=== PATIENT | male | born 1960 | race Caucasian/White ===

== ENCOUNTER 2019-07-14 09:34 | Emergency (ER) | payer BC ==
[~2019-07-14] VITALS: Ht 175.3 cm; Wt 93.9 kg
--- NOTE | 2019-07-14 10:11 | NUR ---
IV LINE STARTED ON RAC 20 G.
--- NOTE | 2019-07-14 10:12 | NUR ---
BLOOD AND CULTURE DRAWN AND SENT TO LAB.
[2019-07-14 10:19] LABS: BASOPHILS # (AUTO) 0.1 /CMM (0.0-0.2); BASOPHILS % (AUTO) 0.7 % (0.0-2.0); EOSINOPHILS % (AUTO) 2.2 % (0.0-6.0); HEMATOCRIT 45 % (39-51); HEMOGLOBIN 15.1 g/dL (13.5-17.5); LYMPHOCYTES # (AUTO) 1.6 /CMM (0.8-4.8); MEAN CORPUSCULAR HGB CONC 34 g/dl (31.0-36.0); MEAN CORPUSCULAR VOLUME 88 fL (80-96); MONOCYTES # (AUTO) 0.6 /CMM (0.1-1.30); MONOCYTES % (AUTO) 7.8 % (2.0-12.0); NEUTROPHILS # (AUTO) 5.9 /CMM (1.8-8.9); NEUTROPHILS % (AUTO) 70.3 % (43.0-81.0); PLATELET COUNT (AUTO) 212 /CMM (150-450); WHITE BLOOD COUNT (AUTO) 8.4 K/uL (4.3-11.0)
[2019-07-14 10:41] LABS: CARBON DIOXIDE 29 mmol/L (21-32); CHLORIDE 103 mmol/L (98-107); POTASSIUM 3.8 mmol/L (3.5-5.1); SODIUM SERUM 139 mmol/L (136-145)
[2019-07-14 10:42] LABS: CALCIUM, SERUM 8.8 mg/dL (8.5-10.1); GLUCOSE 104 mg/dL (74-106); UREA NITROGEN, BLOOD 18 mg/dL (7-18)
[2019-07-14 10:48] LABS: ALANINE AMINOTRANSFERASE 14 U/L (12-78); ALBUMIN 3.4 g/dL (3.4-5.0); ALKALINE PHOSPHATASE 68 U/L (46-116); ASPARTATE AMINOTRANSFERASE 16 U/L (15-37); BILIRUBIN,DIRECT 0.2 mg/dL (0.0-0.2); BILIRUBIN,TOTAL 0.8 mg/dL (0.2-1.0); TOTAL PROTEIN, SERUM 7.2 g/dL (6.4-8.2)
--- NOTE | 2019-07-14 11:09 | NUR ---
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
[2019-07-14] MEDS ORDERED: METF-442 PO (11:30)
[2019-07-14] MEDS ORDERED: INSU300I SQ (11:30)
[2019-07-14] MEDS ORDERED: LISI-603 PO (11:30)
[2019-07-14] MEDS ORDERED: LINA5TAB PO (11:30)
[2019-07-14] MEDS ORDERED: CARV12.52 PO (11:30)
[2019-07-14] MEDS ORDERED: INSU100I14 SQ (11:30)
--- NOTE | 2019-07-14 11:52 | NUR ---
Await room assignment. NO acute changes. NO obvious distress. Dr Stevens in to update with plan of care
--- NOTE | 2019-07-14 12:50 | NUR ---
CALL BACK FROM REBECCA ELLIOTT CHECKER CASHIER,BRITTANIE FACESHEET AND ED NOTES FAXED TO [phone]
[2019-07-14 13:09] LABS: APPEARANCE,URINE Clear (CLEAR); BILIRUBIN,URINE Negative (NEGATIVE); BLOOD, URINE Negative Ery/uL (NEGATIVE); COLOR,URINE Yellow (YELLOW); KETONES,URINE Negative (NEGATIVE); LEUKOCYTE ESTERASE ,URINE Negative (NEGATIVE); NITRITE, URINE Negative (NEGATIVE); PROTEIN,URINE Negative (NEGATIVE); UGLUCOSE Negative (NEGATIVE)
[2019-07-14 13:42] LABS: BACTERIA,URINE Rare /HPF (None Seen); RBC,URINE 0-2 /HPF (0-2); SQUAMOUS EPITHELIAL CELL,UR Rare /HPF (None Seen); WBC,URINE 0-2 /HPF (0-3)
--- NOTE | 2019-07-14 13:54 | NUR ---
Status quo NO obvious distress. Dozing intermittently Awaiting transfer to [facility]. Vs to routine
--- NOTE | 2019-07-14 15:01 | NUR ---
RECEIVED CALL FROM EARL WITH [facility], STILL WAITING FOR A BED ASSIGNMENT AT [facility], SHE WILL CALL WHEN SHE HAS THE BED.
--- NOTE | 2019-07-14 16:00 | NUR ---
Pt and parent highly frustrated regarding delay in transfer. Reassured digital content manager for [facility] aware of pts family request. Both updated with plan of care
[2019-07-14] MEDS ORDERED: ACETAMINOPHEN ES 500 MG TABLET ONE (16:39)
[2019-07-14] MEDS ORDERED: ACETAMINOPHEN ES 500 MG TABLET PO ONE (17:00)
--- NOTE | 2019-07-14 17:16 | NUR ---
CALL FROM ADONIS CHILDRESS, GOING TO [facility], ETA 1800, REPORT TO BE CALLED AT [phone]
--- NOTE | 2019-07-14 17:18 | NUR ---
BED 615-A
[2019-07-14 18:29] VITALS: BP 133/75
--- NOTE | 2019-07-14 18:33 | NUR ---
Awaiting transport to [facility]. Report/Nurse Knowledge Exchange given to Luis Armando [phone]. Pt and parent aware of transfer.
--- NOTE | 2019-07-14 18:43 | NUR ---
Transporting Ambulance here Report given to OSWALDO-Pedro. VSS No acute changes
== END 2019-07-14 18:48 | disposition short-term general hospital (02) ==
LOC: ER 09:49
DX: R42 Dizziness and giddiness (principal); I10 Essential (primary) hypertension; E11.9 Type 2 diabetes mellitus without complications; Z88.0 Allergy status to penicillin; Z79.899 Other long term (current) drug therapy; Z79.4 Long term (current) use of insulin; Z79.84 Long term (current) use of oral hypoglycemic drugs
CPT/HCPCS: 36415; 70450-TC; 71045-TC; 80048-TC; 80076-TC; 81000-TC; 82962-TC; 83605-TC; 84484-TC; 85025-TC; 85730-TC; 87040-TC; 87086-TC